=== PATIENT | female | born 1990 | race Two or more races ===

== ENCOUNTER → 2024-05-10 | Outpatient (CLI) | payer MEDICAID, SELFPAY ==
--- NOTE | 2024-05-10 11:30 | XR_ITS ---
Examination: Abdomen sonogram, complete Date and time of exam: May 10, 2024 1203 hours INDICATIONS: Epigastric pain beginning 5 years ago. Technique: Multiple real-time grayscale transabdominal sonographic images of the abdomen have been obtained. Findings: Normal gallbladder Normal common bile duct 0.2 cm Pancreatic head 2.5 cm Aorta not enlarged Liver 18.6 cm fatty infiltration mildly lobular contour Normal hepatopedal portal venous flow Patent IVC Right kidney 13.1 x 5.5 x 4.3 cm cortex 2.2 cm Left kidney 13.2 x 6.0 x 5.2 cm renal cortex 2.0 cm No hydronephrosis or renal calculi Spleen 9.7 cm IMPRESSION: Normal gallbladder Mild hepatomegaly fatty infiltration suspect primary hepatocellular disease
== END | disposition home or self-care (01) ==
LOC: CDIM 11:43
PROVIDERS: Referring Provider Internal Medicine Gastroenterology; Visit Provider Internal Medicine Gastroenterology
DX: K76.0 Fatty (change of) liver, not elsewhere classified (principal)
CPT/HCPCS: 76700

== ENCOUNTER → 2024-12-24 | Outpatient (CLI) | payer MEDICAID, SELFPAY ==
--- NOTE | 2024-12-24 13:30 | XR_ITS ---
Examination: CT abdomen, without intravenous contrast. CT pelvis, without intravenous contrast. CT abdomen, with intravenous contrast. CT pelvis, with intravenous contrast. 2-D sagittal coronal reconstructions. Date and time of exam:December 24, 2024 1409 hours INDICATIONS: Mid abdominal pain beginning 3 months ago CTDI: vol (mGy) 19.9 DLP: (mGycm) 1214 Technique: Multiple 3.0 axial images of the abdomen and pelvis without intravenous contrast, 3.0 mm slice thickness. Multiple 3.0 postcontrast images abdomen and pelvis also obtained, post intravenous 60 cc [id number] 2-D sagittal and coronal reconstructions. Low dose protocols were performed. One or more of the following dose reduction techniques were used; automated exposure control, adjustment of the mA and/or KV according to patient size, use of iterative reconstruction technique. Findings: No focal liver or splenic lesions. No gallstones. Negative for pancreatitis. 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
== END | disposition home or self-care (01) ==
PROVIDERS: PCP Nurse Practitioner; Referring Provider Internal Medicine Gastroenterology; Visit Provider Internal Medicine Gastroenterology
DX: K76.0 Fatty (change of) liver, not elsewhere classified (principal)
CPT/HCPCS: 74178; A4649; Q9967